=== PATIENT | female | born 1950 | race Caucasian/White ===

== ENCOUNTER → 2023-09-30 07:38 | Outpatient (REF) | payer OTHER, SELFPAY | LOC: PAVMRI 07:38 | PROVIDERS: ATTENDING PHYSICIAN Internal Medicine Cardiovascular Disease; FAMILY PHYSICIAN Internal Medicine | DX: I42.9 Cardiomyopathy, unspecified (principal); I25.10 Atherosclerotic heart disease of native coronary artery without angina pectoris | CPT/HCPCS: 75561; 75565; A9585 ==